=== PATIENT | male | born 1955 | race Caucasian/White ===

== ENCOUNTER 2019-10-27 06:49 | Day surgery (SDC) | payer MEDICARE, BC ==
[~2019-10-27 06:49] MED LIST: Lactated Ringers 1,000 ML IV SCH; Sodium Chloride 0.9% 10 ML Syringe FLUSH PRN
[2019-10-27] MEDS ORDERED: Midazolam 1 MG/ML 2 ML SDV IV ONE (06:50)
[2019-10-27] MEDS ORDERED: Propofol 200 MG/20 ML SDV IV ONE (06:50)
[2019-10-27] MEDS ORDERED: Lidocaine 2% 5 ML SDV IV ONE (06:50)
--- NOTE | 2019-10-27 08:37 | PCM.OPNOTE ---
- General Post-Op/Procedure Note Date of Surgery/Procedure: 10/27/19 Operative Procedure(s): egd with biopsy. c scope Findings: esophageal mass diverticulosis Pre Op Diagnosis: dysphagia, hx of 's esophagus. constipation Post-Op Diagnosis: esophageal mass. diverticulosis Anesthesia Technique: MAC Primary Surgeon: Davidson Shaffer Anesthesia Provider: Leslie Miller Pathology: esophageal biopsy Complications: None Condition: Good Free Text/Narrative:: see dictation
[2019-10-27 10:56] VITALS: BP 125/76; PULSE 62
--- NOTE | 2019-10-28 11:28 | OR ---
DATE OF OPERATION: 10/27/2019 SURGEON: Davidson Shaffer MD PROCEDURES PERFORMED: Esophagogastroduodenoscopy with cold forceps biopsy and colonoscopy. PREOPERATIVE DIAGNOSIS: Dysphagia with a history of esophagus and constipation. POSTOPERATIVE DIAGNOSIS: Esophageal mass from 30 to 40 cm as well as scattered diverticulosis. INDICATIONS FOR PROCEDURE: This is a 63-year-old white male who presents with the above-mentioned findings. DESCRIPTION OF OPERATION: After an excellent IV sedation was administered, the bite block was inserted. The flexible endoscope was passed without difficulty down to the patient's esophagus into the stomach. The stomach was insufflated. Scope was passed through the pylorus, second portion of the duodenum, and slowly withdrawn. The following findings were noted in the duodenum. There was a fair amount of biliary backwash. No obvious gross mass was noted. Stomach essentially unremarkable. The esophagus, from approximately 40 to 30 cm, there was a mass involving approximately a quarter to one-half of the sidewall of the esophagus. Random biopsies were taken. The remainder of the esophageal exam was unremarkable. Stomach was deflated and scope was removed. Our attention was then turned to the colon. Digital rectal exam was performed. No marked abnormality was noted. Flexible colonoscope was inserted and advanced to the cecum. Prep was excellent. The following findings were noted. Ascending colon, scattered diverticulosis; transverse colon, scattered diverticulosis; descending colon, scattered diverticulosis; sigmoid, scattered diverticulosis; and the rectum was unremarkable. Colon was deflated, scope was removed. The patient tolerated the procedure well. /[id number] /MODL
== END 2019-10-27 09:34 | disposition home or self-care (01) ==
LOC: FB.SDS 06:49
PROVIDERS: ATTEND Surgery
DX: K57.30 Diverticulosis of large intestine without perforation or abscess without bleeding (principal); C15.9 Malignant neoplasm of esophagus, unspecified; K59.04 Chronic idiopathic constipation; Z87.19 Personal history of other diseases of the digestive system; Z79.82 Long term (current) use of aspirin; Z79.899 Other long term (current) drug therapy; Z98.890 Other specified postprocedural states
CPT/HCPCS: 00813; 43239; 45378; 88305; J2001; J2250; J2704; J7120

== ENCOUNTER 2022-08-30 10:58 | Emergency (ER) | payer BC, MEDICARE ==
[2022-08-30] MEDS ORDERED: Sodium Chloride 0.9% 10 ML Syringe FLUSH PRN (11:29)
[2022-08-30] MEDS ORDERED: LORazepam 2 MG/ML SDV IVPUSH ONE (11:43)
[2022-08-30 11:55] LABS: BASOPHILS PERCENT AUTO 0.1 % (0.3-3.8); HEMATOCRIT 27.4 % (38.3-50.1); LYMPHOCYTES ABSOLUTE AUTO 0.2 x10-3/uL (0.5-4.5); LYMPHOCYTES PERCENT AUTO 1.7 % (15.8-45.3); MEAN CORPUSCULAR HEMOGLOBIN 32.2 pg (27.0-33.3); MEAN CORPUSCULAR HGB CONC 32.8 g/dL (28.7-35.3); MEAN CORPUSCULAR VOLUME 98.4 fL (80.8-98.7); MEAN PLATELET VOLUME 8.2 fL (6.7-11.0); MONOCYTES ABSOLUTE AUTO 0.7 x10-3/uL (0.0-1.2); MONOCYTES PERCENT AUTO 6.6 % (5.5-15.2); NEUTROPHILS ABSOLUTE AUTO 9.5 x10-3/uL (1.7-6.9); NEUTROPHILS PERCENT AUTO 91.6 % (40.3-71.8); PLATELET COUNT,PLT 134 x10(3)uL (117-477); RED BLOOD CELL COUNT 2.79 x10(6)uL (3.90-5.90); RED CELL DISTRIBUTION WIDTH 15.5 % (12.4-15.0); WHITE BLOOD CELL COUNT,WBC 10.3 x10-3/uL (3.2-10.1)
[2022-08-30 11:57] LABS: BLOOD UREA NITROGEN,BUN 31 mg/dL (7-18); CALCIUM 8.5 mg/dL (8.6-10.2); CARBON DIOXIDE,CO2 26 mmol/L (21-32); CHLORIDE,CL 106 mmol/L (100-110); ESTIMATED GFR 82 mL/min (>60); GLUCOSE RANDOM 218 mg/dL (80-116); POTASSIUM,K 3.8 mmol/L (3.5-5.3); SODIUM,NA 142 mmol/L (135-145)
[2022-08-30 12:04] LABS: INR 1.09 (1.00-1.24); PROTHROMBIN TIME 11.2 sec (9.0-11.1)
[2022-08-30] MEDS: Sodium Chloride 0.9% 1,000 ML IV SCH ×2 (12:05→13:55)
[2022-08-30 12:08] LABS: ALANINE AMINOTRANSFERASE,ALT 30 U/L (12-36); ALKALINE PHOSPHATASE 83 IU/L (56-112); ASPARTATE AMNIOTRANSFERASE,AST 25 IU/L (5-25); BILIRUBIN TOTAL 0.7 mg/dL (0.1-1.3)
[2022-08-30 12:15] VITALS: BP 120/75; PULSE 81
[2022-08-30] MEDS ORDERED: Iopamidol 755 Mg/ML 100 ML Bottle IV ONE ×2 (12:28→13:53)
[2022-08-30] MEDS ORDERED: Ondansetron 4 MG/2 ML SDV IVPUSH ONE (13:54)
[2022-08-30] MEDS ORDERED: Sodium Chloride 0.9% 1,000 ML IV SCH (14:00)
[2022-08-30] MEDS ORDERED: Pantoprazole 40 MG Vial IVPUSH ONE (15:27)
== END 2022-08-30 17:25 ==
LOC: FB.ED 10:58
DX: K92.1 Melena (principal); I26.99 Other pulmonary embolism without acute cor pulmonale; D64.9 Anemia, unspecified; K92.0 Hematemesis; K21.9 Gastro-esophageal reflux disease without esophagitis; Z79.82 Long term (current) use of aspirin; Z79.01 Long term (current) use of anticoagulants; Z79.899 Other long term (current) drug therapy
CPT/HCPCS: 36415; 71260; 74177; 80053; 85025; 85610; 85730; 93005; 93010; 96361; 96374; 96375; 99285; C9113; J2060; J2405; J3490; J7030; Q9967

== ENCOUNTER 2024-06-30 16:43 | Inpatient (IN) | payer MEDICARE ==
[2024-06-30 17:25] LABS: HEMATOCRIT 36.2 % (38.3-50.1); HEMOGLOBIN 11.9 g/dL (12.9-17.7); MEAN CORPUSCULAR HEMOGLOBIN 33.4 pg (27.0-33.3); MEAN CORPUSCULAR HGB CONC 32.9 g/dL (28.7-35.3); MEAN CORPUSCULAR VOLUME 101.4 fL (80.8-98.7); MEAN PLATELET VOLUME 8.9 fL (6.7-11.0); PLATELET COUNT,PLT 295 x10(3)uL (117-477); RED BLOOD CELL COUNT 3.57 x10(6)uL (3.90-5.90); RED CELL DISTRIBUTION WIDTH 18.8 % (12.4-15.0); WHITE BLOOD CELL COUNT,WBC 16.7 x10-3/uL (3.2-10.1)
[2024-06-30] MEDS: Dexamethasone 4 MG/ML 5 ML MDV IVPUSH ONE (17:27)
[2024-06-30 17:32] LABS: BLOOD UREA NITROGEN,BUN 16 mg/dL (7-18); BUN/CREATININE RATIO 17.8 (9-20); CALCIUM 7.9 mg/dL (8.6-10.2); CARBON DIOXIDE,CO2 26 mmol/L (21-32); CHLORIDE,CL 101 mmol/L (100-110); CREATININE 0.9 mg/dL (0.70-1.30); EST CRCL DRUG DOSING (CG) 69.09 mL/min; ESTIMATED GFR 92 mL/min (>60); GLUCOSE RANDOM 63 mg/dL (80-116); POTASSIUM,K 4.1 mmol/L (3.5-5.3); SODIUM,NA 136 mmol/L (135-145)
[2024-06-30 17:38] LABS: A/G RATIO 0.7; ALANINE AMINOTRANSFERASE,ALT 50 U/L (12-36); ALKALINE PHOSPHATASE 445 IU/L (56-112); ASPARTATE AMNIOTRANSFERASE,AST 98 IU/L (5-25); BILIRUBIN TOTAL 0.8 mg/dL (0.1-1.3); PROTEIN TOTAL,TP 4.9 g/dL (6.0-8.0)
[2024-06-30 17:53] LABS: BAND PERCENT MAN 5 % (0-6); LYMPHOCYTES PERCENT MAN 4 % (13-37); MONOCYTES PERCENT MAN 3 % (4-12); SEG NEUTROPHILS PERCENT MAN 88 % (46-82)
[2024-06-30 17:54] LABS: ANISOCYTOSIS FEW; NRBC MANUAL 1 /100WBC (0-0)
[2024-06-30] MEDS: fentaNYL 100 MCG/2 ML SDV IVPUSH ONE (18:02)
[2024-06-30] MEDS: Sodium Chloride 0.9% 1,000 ML IV ONE (18:03)
[2024-06-30] MEDS: Levofloxacin/Dextrose 5%-Water 750 MG in Premix Bag 1 BAG IV ONE (18:08)
[2024-06-30] MEDS ORDERED: Magnesium Hydroxide 400 MG/5 ML Susp 30 ML Cup PO PRN (19:15)
[2024-06-30] MEDS ORDERED: Alum Hydroxide/Mag Hydroxide 15 ML, Lidocaine 2% 15 ML PO PRN (19:25)
[2024-06-30] MEDS: fentaNYL 100 MCG/2 ML SDV IVPUSH PRN (20:07)
[2024-06-30] MEDS: Sodium Chloride 0.9% 1,000 ML IV SCH (20:08)
[2024-06-30] MEDS: Meloxicam 7.5 MG Tab PO SCH (20:08)
[2024-07-01] MEDS: Levothyroxine 50 MCG Tab PO SCH (05:14)
[2024-07-01] MEDS: Pantoprazole 40 MG Tab.CR PO SCH (05:14)
[2024-07-01] MEDS ORDERED: Loperamide 2 MG Cap PO PRN (08:48)
[2024-07-01] MEDS ORDERED: Lidocaine/Prilocaine 2.5-2.5% Crm 5 GM Tube TOP PRN (08:53)
[2024-07-01] MEDS: cefTRIAXone 1 GM Vial IVPUSH SCH (09:49)
[2024-07-01] MEDS: Azithromycin 500 MG Tab PO ONE (09:49)
[2024-07-01] MEDS: predniSONE 10 MG Tab PO SCH (09:50)
[2024-07-01] MEDS: Acetaminophen 325 MG Tab PO PRN (12:28)
[2024-07-01] MEDS: Melatonin 3 MG Tab PO PRN (23:41)
[2024-07-02 07:01] LABS: HEMATOCRIT 32.4 % (38.3-50.1); HEMOGLOBIN 10.9 g/dL (12.9-17.7); MEAN CORPUSCULAR HEMOGLOBIN 34.2 pg (27.0-33.3); MEAN CORPUSCULAR HGB CONC 33.7 g/dL (28.7-35.3); MEAN CORPUSCULAR VOLUME 101.6 fL (80.8-98.7); MEAN PLATELET VOLUME 9.1 fL (6.7-11.0); PLATELET COUNT,PLT 273 x10(3)uL (117-477); RED BLOOD CELL COUNT 3.19 x10(6)uL (3.90-5.90); RED CELL DISTRIBUTION WIDTH 19.4 % (12.4-15.0); WHITE BLOOD CELL COUNT,WBC 11.8 x10-3/uL (3.2-10.1)
[2024-07-02 07:15] LABS: A/G RATIO 0.7; ALANINE AMINOTRANSFERASE,ALT 40 U/L (12-36); ALKALINE PHOSPHATASE 340 IU/L (56-112); ASPARTATE AMNIOTRANSFERASE,AST 87 IU/L (5-25); BILIRUBIN TOTAL 0.4 mg/dL (0.1-1.3); BLOOD UREA NITROGEN,BUN 15 mg/dL (7-18); BUN/CREATININE RATIO 16.7 (9-20); CALCIUM 7.1 mg/dL (8.6-10.2); CARBON DIOXIDE,CO2 26 mmol/L (21-32); CHLORIDE,CL 105 mmol/L (100-110); CREATININE 0.9 mg/dL (0.70-1.30); EST CRCL DRUG DOSING (CG) 72.27 mL/min; ESTIMATED GFR 92 mL/min (>60); GLUCOSE RANDOM 60 mg/dL (80-116); POTASSIUM,K 4.4 mmol/L (3.5-5.3); PROTEIN TOTAL,TP 4.2 g/dL (6.0-8.0); SODIUM,NA 137 mmol/L (135-145)
[2024-07-02 07:27] LABS: ALBUMIN 1.7 g/dL (3.2-4.6)
[2024-07-02 08:09] LABS: EOSINOPHILS PERCENT MAN 3 % (0-5); LYMPHOCYTES PERCENT MAN 1 % (13-37); MONOCYTES PERCENT MAN 6 % (4-12); SEG NEUTROPHILS PERCENT MAN 90 % (46-82)
[2024-07-02 08:10] LABS: OVALOCYTES FEW; TARGET CELLS MODERATE; TEARDROP CELLS FEW
[2024-07-02] MEDS: Azithromycin 250 MG Tab PO SCH (09:13)
[2024-07-02] MEDS: Sodium Chloride 0.9% 10 ML Syringe FLUSH ONE (10:22)
[2024-07-02 10:33] VITALS: BP 92/59; PULSE 75
== END 2024-07-02 11:14 | disposition hospice, home (50) | DRG 194 ==
LOC: FB.ED 16:43 → FB.MS 19:29 → OBSVTOIN 07-01 08:45
PROVIDERS: ADMIT Family Medicine; ATTEND Family Medicine
DX: J18.9 Pneumonia, unspecified organism (principal); R53.1 Weakness; C15.9 Malignant neoplasm of esophagus, unspecified; E86.0 Dehydration; Z79.890 Hormone replacement therapy; Z51.5 Encounter for palliative care; Z66 Do not resuscitate; H54.7 Unspecified visual loss; N40.0 Benign prostatic hyperplasia without lower urinary tract symptoms; I95.9 Hypotension, unspecified; D64.9 Anemia, unspecified; Z79.82 Long term (current) use of aspirin; Z79.01 Long term (current) use of anticoagulants; Z79.899 Other long term (current) drug therapy; Z98.890 Other specified postprocedural states
CPT/HCPCS: 36415; 71045; 80053; 82947; 85025; 96361; 96365; 96375; 96376; 99222; 99238; 99285; 99285-25; A9270-GY; G0378; J0696; J1100; J1956; J3010; J7030; J7512

== ENCOUNTER 2024-07-10 22:10 | Emergency (ER) | payer MEDICARE ==
[2024-07-10] MEDS ORDERED: Sodium Chloride 0.9% 10 ML Syringe FLUSH PRN (22:27)
[2024-07-10 22:28] VITALS: BP 89/61; PULSE 80
[2024-07-10] MEDS ORDERED: Albuterol/Ipratropium 3.0-0.5 MG/3 ML Neb Soln NEB STA (22:59)
[2024-07-10] MEDS ORDERED: methylPREDNISolone Sodium Succinate 125 MG/2 ML SDV IVPUSH ONE (22:59)
[2024-07-10] MEDS: Sodium Chloride 0.9% 1,000 ML IV SCH (23:11)
[2024-07-10 23:15] LABS: HEMATOCRIT 30.7 % (38.3-50.1); HEMOGLOBIN 10.3 g/dL (12.9-17.7); MEAN CORPUSCULAR HEMOGLOBIN 33.4 pg (27.0-33.3); MEAN CORPUSCULAR HGB CONC 33.6 g/dL (28.7-35.3); MEAN CORPUSCULAR VOLUME 99.5 fL (80.8-98.7); PLATELET COUNT,PLT 152 x10(3)uL (117-477); RED BLOOD CELL COUNT 3.08 x10(6)uL (3.90-5.90); RED CELL DISTRIBUTION WIDTH 18.9 % (12.4-15.0); WHITE BLOOD CELL COUNT,WBC 16.2 x10-3/uL (3.2-10.1)
[2024-07-10 23:18] LABS: BLOOD UREA NITROGEN,BUN 11 mg/dL (7-18); BUN/CREATININE RATIO 13.8 (9-20); CALCIUM 7.9 mg/dL (8.6-10.2); CARBON DIOXIDE,CO2 29 mmol/L (21-32); CHLORIDE,CL 100 mmol/L (100-110); CREATININE 0.8 mg/dL (0.70-1.30); ESTIMATED GFR 95 mL/min (>60); GLUCOSE RANDOM 77 mg/dL (80-116); POTASSIUM,K 4.1 mmol/L (3.5-5.3); SODIUM,NA 134 mmol/L (135-145)
[2024-07-10 23:24] LABS: A/G RATIO 0.5; ALANINE AMINOTRANSFERASE,ALT 44 U/L (12-36); ALKALINE PHOSPHATASE 392 IU/L (56-112); ASPARTATE AMNIOTRANSFERASE,AST 93 IU/L (5-25); BILIRUBIN TOTAL 0.9 mg/dL (0.1-1.3); PROTEIN TOTAL,TP 4.8 g/dL (6.0-8.0)
[2024-07-10 23:26] LABS: ALBUMIN 1.6 g/dL (3.2-4.6)
[2024-07-10 23:34] LABS: ANISOCYTOSIS MODERATE; LYMPHOCYTES PERCENT MAN 6 % (13-37); MONOCYTES PERCENT MAN 6 % (4-12); SEG NEUTROPHILS PERCENT MAN 88 % (46-82)
[2024-07-10 23:35] LABS: POIKILOCYTOSIS FEW; TARGET CELLS OCCASIONAL
[2024-07-11] MEDS: Sodium Chloride 0.9% 1,000 ML IV SCH (00:15)
== END 2024-07-11 02:00 | disposition home or self-care (01) ==
LOC: FB.ED 22:10
DX: E86.0 Dehydration (principal); C15.9 Malignant neoplasm of esophagus, unspecified
CPT/HCPCS: 71045; 80053; 85025; 96360; 96361; 99284; 99285; J1642; J7030

== ENCOUNTER 2024-07-17 13:05 | Inpatient (IN) | payer MEDICARE ==
[2024-07-17] MEDS ORDERED: BENZONATATE 100 MG PO PRN (14:03)
[2024-07-17] MEDS ORDERED: Bisacodyl 10 MG Supp *PTOM RECTAL PRN (14:04)
[2024-07-17] MEDS ORDERED: Polyethylene Glycol 3350 Powder 17 GM Packet PO PRN (14:05)
[2024-07-17] MEDS ORDERED: Hyoscyamine 0.125 MG Tab.SL *PTOM PO PRN (14:07)
[2024-07-17] MEDS ORDERED: Ondansetron 4 MG Tab.DIS *PTOM PO PRN (14:12)
[2024-07-17] MEDS ORDERED: Loperamide 2 MG Cap PO PRN (14:32)
[2024-07-17] MEDS: Haloperidol Lactate 2 MG/ML Oral Soln 15 ML Bottle PO PRN (14:33)
[2024-07-17] MEDS: Morphine 10 MG/0.5 ML Oral Syringe SL PRN (14:34)
[2024-07-17] MEDS ORDERED: MELOXICAM 15 MG PO PRN (14:34)
[2024-07-17] MEDS ORDERED: Acetaminophen 500 MG Tab PO PRN (14:34)
[2024-07-17] MEDS ORDERED: LIDOCAINE TOP PRN (14:36)
[2024-07-17] MEDS ORDERED: PRILOCAINE TOP PRN (14:36)
[2024-07-17] MEDS ORDERED: Adenosine 6 MG/2 ML SDV IVPUSH ONE ×2 (15:40→15:45)
[2024-07-17] MEDS ORDERED: OMEPRAZOLE 40 MG PO SCH (17:00)
[2024-07-17] MEDS ORDERED: Haloperidol Lactate 2 MG/ML Oral Soln 15 ML Bottle *PTOM PO SCH (21:00)
[2024-07-18] MEDS ORDERED: Levothyroxine 50 MCG Tab *PTOM PO SCH (06:00)
[2024-07-18] MEDS ORDERED: DEXAMETHASONE 1 MG PO SCH (09:00)
== END 2024-07-17 16:15 | disposition expired | DRG 951 ==
LOC: FB.MS 13:05
PROVIDERS: ADMIT Family Medicine; ATTEND Family Medicine
DX: Z51.5 Encounter for palliative care (principal); C15.9 Malignant neoplasm of esophagus, unspecified; Z75.5 Holiday relief care
CPT/HCPCS: A9270-GY; Q5005